=== PATIENT | male | born 1950 | race Caucasian/White ===

== ENCOUNTER → 2017-02-04 | Outpatient (CLI) | payer MEDICARE ==
[~2017-02-04] MED LIST: ALLO300T PO; AMIO200T42 PO; ASPI-515 PO; ASTA4CAP PO; CARV-39 PO; CHOL2000 PO; COCO1000 PO; FLAX100013 PO; FOLI20CA PO; HYAL0.5P PO; LISI-170 PO; LORA1TAB PO; NIAC500C3 PO; POTA20PA PO; PRAV80TA2 PO; PT WILL BRING LIST; UBID100C41 PO; VITA1TAB19 PO; WARF5TAB7 PO
== END | disposition home or self-care (01) ==
LOC: CFH 13:18
PROVIDERS: ATTEND Family Medicine
DX: M19.011 Primary osteoarthritis, right shoulder (principal); M19.042 Primary osteoarthritis, left hand; M19.041 Primary osteoarthritis, right hand; M25.742 Osteophyte, left hand; M25.741 Osteophyte, right hand

== ENCOUNTER → 2017-09-11 | Outpatient (CLI) | payer MEDICARE ==
[~2017-09-11] MED LIST changes: +WARF-36 PO; -WARF5TAB7 PO
== END | disposition home or self-care (01) ==
LOC: RAD 16:28
DX: R10.31 Right lower quadrant pain (principal); K46.9 Unspecified abdominal hernia without obstruction or gangrene
CPT/HCPCS: 76857

== ENCOUNTER 2017-10-14 06:20 | Day surgery (SDC) | payer MEDICARE ==
[~2017-10-14] VITALS: Ht 188 cm; Wt 98.9 kg
[~2017-10-14 06:20] MED LIST changes: +POTASSIUM
[2017-10-14] MEDS ORDERED: MIDAZOLAM 1 MG/ML, 2ML ONE (06:54)
[2017-10-14] MEDS ORDERED: FENTANYL PF 250 MCG/5ML ONE (06:54)
[2017-10-14] MEDS ORDERED: MAGNESIUM PO (06:55)
[2017-10-14] MEDS ORDERED: PROPOFOL 10 MG/ML, 20ML ONE (06:57)
[2017-10-14] MEDS ORDERED: ROCURONIUM 10MG/ML,5ML ONE (06:57)
[2017-10-14] MEDS ORDERED: GLYCOPYRROLATE 0.4 MG/2 ML, 2ML ONE (06:58)
[2017-10-14] MEDS ORDERED: NEOSTIGMINE 1 MG/ML, 10ML ONE (06:58)
[2017-10-14] MEDS ORDERED: WATER-INJECTION,STERILE 10 ML IV ONE (06:59)
[2017-10-14] MEDS ORDERED: CEFAZOLIN 1,000 MG ONE ×2 (06:59)
[2017-10-14] MEDS ORDERED: OxyconTIN ER 10 MG TAB.ER PO ONE (07:00)
[2017-10-14] MEDS ORDERED: GABAPENTIN 300 MG CAPSULE PO ONE (07:00)
[2017-10-14] MEDS ORDERED: ACETAMINOPHEN 500 MG TABLET PO ONE (07:00)
[2017-10-14 07:09] VITALS: BP 110/76
[2017-10-14] MEDS ORDERED: EPINEPHRINE 1 MG/ML, 1ML ONE (07:15)
[2017-10-14] MEDS ORDERED: BUPIVACAINE/PF 0.5% ONE (07:15)
[2017-10-14] MEDS ORDERED: ACETAMINOPHEN 500 MG TABLET ONE (07:23)
[2017-10-14] MEDS ORDERED: OxyconTIN ER 10 MG TAB.ER ONE (07:23)
[2017-10-14] MEDS ORDERED: GABAPENTIN 300 MG CAPSULE ONE (07:24)
[2017-10-14] MEDS ORDERED: OXYcodone 5 MG/5 ML ORAL.SOL UDC PO PRN (07:30)
[2017-10-14] MEDS ORDERED: HYDROmorphone 1 MG/ML, 1ML IV PRN (07:30)
[2017-10-14] MEDS ORDERED: LABETALOL 5MG/ML, 20ML IV PRN (07:30)
[2017-10-14] MEDS ORDERED: hydrALAzine 20 MG/ML, 1ML IV PRN (07:30)
[2017-10-14] MEDS ORDERED: PROMETHAZINE 25 MG/ML, 1ML IV PRN (07:30)
[2017-10-14] MEDS ORDERED: ONDANSETRON 2MG/ML, 2ML IV PRN (07:30)
[2017-10-14] MEDS ORDERED: PROMETHAZINE 25 MG SUPP PR PRN (07:30)
[2017-10-14] MEDS ORDERED: MORPHINE SULFATE 4 MG/ML, 1ML IVPush PRN (07:30)
[2017-10-14] MEDS ORDERED: ONDANSETRON ODT 8 MG PO PRN (07:30)
[2017-10-14] MEDS ORDERED: PROMETHAZINE 12.5 MG SUPP PR PRN (07:30)
[2017-10-14] MEDS ORDERED: PLEASE ENTER HEIGHT AND WEIGHT MC SCH (07:30)
[2017-10-14] MEDS ORDERED: LACTATED RINGERS 1,000 ML IV SCH (07:36)
[2017-10-14 08:06] LABS: INTERNATIONAL NORMALIZED RATIO 1.04 (0.93-1.1); PROTHROMBIN TIME 10.8 Seconds (9.6-11.5)
[2017-10-14] MEDS ORDERED: MORPHINE SULFATE 4 MG/ML, 1ML ONE (08:49)
[2017-10-14] MEDS ORDERED: FENTANYL PF 100 MCG/2ML ONE (08:59)
[2017-10-14] MEDS: FENTANYL PF 100 MCG/2ML IV PRN ×2 (09:01→09:21)
[2017-10-14] MEDS ORDERED: OXYcodone 5 MG/5 ML ORAL.SOL UDC ONE (09:19)
[2017-10-14] MEDS ORDERED: MEPERIDINE/PF 50 MG/ML ONE (09:25)
[2017-10-14] MEDS: MEPERIDINE/PF 25MG/0.5ML IVPush PRN ×2 (09:26→09:35)
[2017-10-14] MEDS ORDERED: ONDANSETRON 2MG/ML, 2ML ONE (09:31)
[2017-10-14] MEDS ORDERED: PROMETHAZINE 25 MG/ML, 1ML ONE (09:31)
== END 2017-10-14 12:35 | disposition home or self-care (01) ==
LOC: OUT 06:20
PROVIDERS: ATTEND Surgery
DX: K40.90 Unilateral inguinal hernia, without obstruction or gangrene, not specified as recurrent (principal); D17.6 Benign lipomatous neoplasm of spermatic cord; M10.9 Gout, unspecified; I25.2 Old myocardial infarction; I50.9 Heart failure, unspecified; I25.10 Atherosclerotic heart disease of native coronary artery without angina pectoris; E78.5 Hyperlipidemia, unspecified; I10 Essential (primary) hypertension; Z87.39 Personal history of other diseases of the musculoskeletal system and connective tissue; Z86.718 Personal history of other venous thrombosis and embolism; Z86.711 Personal history of pulmonary embolism; Z90.49 Acquired absence of other specified parts of digestive tract; Z98.890 Other specified postprocedural states; Z79.899 Other long term (current) drug therapy; Z91.018 Allergy to other foods; Z86.73 Personal history of transient ischemic attack (TIA), and cerebral infarction without residual deficits; Z72.89 Other problems related to lifestyle; Z95.810 Presence of automatic (implantable) cardiac defibrillator
CPT/HCPCS: 36415; 49650; 85610; 85730; 93005; C1781; J0171; J0690; J2175; J2250; J2405; J2704; J2710; J3010; J3490

== ENCOUNTER → 2020-05-26 | Outpatient (CLI) | payer MEDICARE ==
[~2020-05-26] MED LIST changes: -ASPI-515 PO; +ASPI-963 PO; +MAGNESIUM PO; -POTA20PA PO; +POTA20PA31 PO
== END | disposition home or self-care (01) ==
LOC: CVU 08:48
PROVIDERS: ATTEND Internal Medicine Cardiovascular Disease
DX: I08.0 Rheumatic disorders of both mitral and aortic valves (principal); I25.2 Old myocardial infarction; E78.5 Hyperlipidemia, unspecified; I25.5 Ischemic cardiomyopathy; Z95.810 Presence of automatic (implantable) cardiac defibrillator
CPT/HCPCS: 93306; 93356

== ENCOUNTER → 2020-08-17 | Outpatient (CLI) | payer MEDICARE | END | disposition home or self-care (01) | LOC: LAB 09:56 | PROVIDERS: ATTEND Family Medicine | DX: M51.36 Other intervertebral disc degeneration, lumbar region (principal); M41.86 Other forms of scoliosis, lumbar region; M25.552 Pain in left hip | CPT/HCPCS: 72110 ==